=== PATIENT | male | born 1950 | race Hispanic/Latino ===

== ENCOUNTER 2025-01-09 18:40 | Emergency (ER) | payer MEDICARE ==
[~2025-01-09] VITALS: Ht 167.6 cm; Wt 78.0 kg
--- NOTE | 2025-01-09 19:17 | HMCIMG ---
CT HEAD WITHOUT CONTRAST INDICATION: Vision changes TECHNIQUE: Noncontrast axial helical CT images from the vertex through the skull base using 5 mm slice thickness without contrast material. Coronal and sagittal reconstructions were also included. Dose reduction techniques was used using integrated, automated and adaptive dose reduction exposure control. CT was performed with one or more of the following dose reduction techniques: Automated exposure control, adjustment of the mA and/or kV according to patient size, or use of iterative reconstruction technique. COMPARISON: None FINDINGS: Scattered and coalescent subcortical and periventricular white matter low attenuating areas likely represent residual of chronic small vessel arteriopathy and/or remote vascular insult. Generalized mild cerebral cortical atrophy is present.. No evidence for abnormal extra-axial fluid collections or masses. The ventricles and sulci are normal in size and configuration. 6.0 x 2.5 cm right occipital lobe parenchymal hematoma. No evidence for mass effect or midline shift. No evidence for epidural or subdural hemorrhage. The barrientos-white matter differentiation is well preserved. No secondary evidence to suggest acute ischemia. Mild calcific plaque is present along the yanez of the cavernous segments of both internal carotid arteries. The brainstem and cerebellum appear normal. The visualized orbits appear unremarkable. The visible paranasal sinuses and mastoid air cells are clear. The calvarium appears normal. IMPRESSION: Large right occipital lobe parenchymal hematoma. This examination was provided for interpretation at 7:14 PM. Above findings discussed with ER staff at 7:14 PM on 01/09/2025 via telephone prior to finalization of this report. Chronic white matter ischemic changes, mild brain atrophy, and arteriosclerotic disease as described, without acute component.
[2025-01-09 19:27] LABS: BASOPHILS # (AUTO) 0.03 K/uL (0.00-0.20); BASOPHILS % (AUTO) 0.4 % (0.0-5.0); EOSINOPHILS # (AUTO) 0.11 K/uL (0.00-0.70); EOSINOPHILS % (AUTO) 1.5 % (0.0-8.0); HEMATOCRIT 34.6 % (42-54); IMMATURE GRANULOCYTE ABSOLUTE 0.02 K/uL (0-1); LYMPHOCYTES # (AUTO) 2.1 K/uL (1.0-4.8); MEAN CORPUSCULAR HEMOGLOBIN 31.5 pg (27.0-33.0); MEAN CORPUSCULAR HGB CONC 34.7 g/dL (32.0-36.0); MEAN CORPUSCULAR VOLUME 90.8 fL (79-99); MONOCYTES # (AUTO) 0.6 K/uL (0.1-1.0); MONOCYTES % (AUTO) 8.4 % (3.0-13.0); NEUTROPHILS # (AUTO) 4.5 K/uL (1.8-7.7); NEUTROPHILS % (AUTO) 60.4 % (40.0-77.0); PLATELET COUNT (AUTO) 179 K/uL (130-400); RED BLOOD CELL COUNT(AUTO) 3.81 MIL/uL (4.50-6.20); RED CELL DISTRIBUTION WIDTH 12.3 % (11.0-15.5); WHITE BLOOD COUNT (AUTO) 7.4 K/uL (4.8-10.8)
--- NOTE | 2025-01-09 19:43 | ERN ---
ED Note History of Present Illness Stated Complaint: VISION AND BALANCE PROBLEM Chief Complaint: Vision Problem Time Seen by MD: 19:55 Dictation: This is a 74-year-old male who came into the emergency room complaining of vision issues and balance of today. He stated that he also had a headache right above the right eyebrow which he started experiencing around 5:00 p.m.. Apparently his daughter noticed that he was more tired than usual and felt somewhat unsteady and hence she called the son and [id number] who came by to check on him and convinced him to come to the emergency room. He denied any loss of consciousness. No seizure. The blurred vision mostly in the right eye. No history of any seizure activity. No history of taking any blood thinners. Stroke alert was called around 650 p.m. [id number] Miladis at bedside. Temperature 97.9� pulse 78 respirations 16 blood pressure 134/65 pulse oximetry 99% on room air His chronic medical problems include diabetes mellitus and hypertension NIH 3 Allergies: Coded Allergies: No Known Drug Allergies (Unverified Allergy, Unknown, 01/09/25) Past Medical History Past Medical History: Diabetes-Type II, High Cholesterol, Hypertension Surgical History: None Family History: Negative Social History: Negative RN Note Reviewed/Agreed w/PFSH: Yes Review of System Dictation Constitutional: Negative for fever,chills, and weight loss Eyes: Negative for injury, pain,redness, and discharge ENT: Negative for injury,pain or swelling Cardiovascular: Negative for chest pain, palpitations, and edema Respiratory: Negative for shortness of breath, cough, and wheezing, Abdomen/GI: Negative for abdominal pain, nausea, vomiting, diarrhea, and constipation Back: Negative for injury and pain : Negative for injury, bleeding and discharge MS/Extremity: Negative for injury and deformity Skin: Negative for rash, and discoloration Neuro: Positive for headache near right forehead area, denies weakness, numbness, tingling, and seizure Psych: Negative for suicide ideation, homicidal ideation, and hallucinations Initial Vital Sign VS Vital Signs Date Time Temp Pulse Resp B/P (MAP) Pulse Ox O2 Delivery O2 Flow Rate FiO2 01/09/25 18:42 97.9 78 16 134/65 99 Room Air 01/09/25 19:22 0 21 Physical Exam Dictation General: awake, alert, NAD Head/Face: Normocephalic, atraumatic Eyes: PERRL, EOMI, vision at baseline ENT: oral cavity clear, TMs clear, no signs of infection Neck: Trachea midline, supple, no nuchal rigidity Cardiovascular: RRR, normal S1/S2, No MRGs, no JVD Respiratory: CTAB, no respiratory distress, No rales or wheezes Abdomen: Soft, non-tender, non-distended, normal bowel sounds, no guarding or rebound. Skin: Warm, dry, normal turgor, no rash MS/Extremity: Pulses equal, no cyanosis, neurovascular intact, FROM Neuro: COAx4, GCS 15, strength 5/5, CN 2-12 intact, normal cerebellar exam, normal gait, Psych: Normal behavior, mood, and affect normal Extremities-trace edema without any palpable cords, Homans sign is negative Results (Laboratory/Radiology) Laboratory/Radiology Laboratory Tests Test 01/09/25 18:47 01/09/25 19:17 01/09/25 19:47 Whole Blood Glucose 220 MG/DL (70-110) H White Blood Count 7.4 K/uL (4.8-10.8) Red Blood Count 3.81 MIL/uL (4.50-6.20) L Hemoglobin 12.0 g/dL (14.0-18.0) L Hematocrit 34.6 % (42-54) L Mean Corpuscular Volume 90.8 fL (79-99) Mean Corpuscular Hemoglobin 31.5 pg (27.0-33.0) Mean Corpuscular Hemoglobin Concent 34.7 g/dL (32.0-36.0) Red Cell Distribution Width 12.3 % (11.0-15.5) Platelet Count 179 K/uL (130-400) Mean Platelet Volume 10.7 fL (7.5-10.5) H Immature Granulocyte % (Auto) 0.3 % (0-1) Neutrophils (%) (Auto) 60.4 % (40.0-77.0) Lymphocytes (%) (Auto) 29.0 % (21.0-51.0) Monocytes (%) (Auto) 8.4 % (3.0-13.0) Eosinophils (%) (Auto) 1.5 % (0.0-8.0) Basophils (%) (Auto) 0.4 % (0.0-5.0) Neutrophils # (Auto) 4.5 K/uL (1.8-7.7) Lymphocytes # (Auto) 2.1 K/uL (1.0-4.8) Monocytes # (Auto) 0.6 K/uL (0.1-1.0) Eosinophils # (Auto) 0.11 K/uL (0.00-0.70) Basophils # (Auto) 0.03 K/uL (0.00-0.20) Absolute Immature Granulocyte (auto 0.02 K/uL (0-1) Nucleated Red Blood Cells 0.0 % (0.0-0.19) Prothrombin Time 10.9 SEC (9.6-11.6) Prothromb Time International Ratio 1.03 (0.85-1.15) Activated Partial Thromboplast Time 27.7 SEC (26.3-35.5) Sodium Level 138 mmol/L (136-145) Potassium Level 4.5 mmol/L (3.5-5.1) Chloride Level 104 mmol/L (101-111) Carbon Dioxide Level 27 mmol/L (21-32) Blood Urea Nitrogen 27 mg/dL (7-18) H Creatinine 1.4 mg/dL (0.5-1.3) H Glomerular Filtration Rate Calc 52 mL/min (>90) Random Glucose 224 mg/dL (70-105) H Total Calcium 8.6 mg/dL (8.5-10.1) Total Creatine Kinase 50 U/L (21-232) Troponin I High Sensitivity < 4 ng/L (4-75) L B-Type Natriuretic Peptide 23 pg/mL (0-100) LDL Cholesterol 71 mg/dL (0-99) Urine Color LIGHT-YELLOW (YELLOW) Urine Appearance CLEAR (CLEAR) Urine pH 5.0 (5.0-8.0) Urine Specific [place] 1.030 (1.001-1.031) Urine Protein 10 mg/dL (NEGATIVE) H Urine Glucose (UA) 500 mg/dL (NEGATIVE) H Urine Ketones 5 mg/dL (NEGATIVE) H Urine Occult Blood NEGATIVE (NEGATIVE) Urine Nitrate NEGATIVE (NEGATIVE) Urine Bilirubin NEGATIVE mg/dL (NEGATIVE) Urine Urobilinogen 2.0 mg/dL (0.2-1.0) H Urine Leukocyte Esterase NEGATIVE Shira/uL Urine RBC 2-5 /HPF (0-1) H Urine WBC 0-1 /HPF (0-1) Urine Bacteria None /HPF (None Seen) Urine Hyaline Casts 6-10 /LPF (0-1 /LPF) H Labs Reviewed?: Yes EKG Comment: Twelve lead EKG done on 01/09/2025 at 6:52 p.m. showed a heart rate of 68, [place] interval 153, QRS 90, QT/QTC 387/412 Impression normal sinus rhythm presence of Q's in the septal leads likely from an old infarct no acute ST elevations noted. Overall somewhat low voltage secondary to likely body habitus Twelve lead EKG rhythm strip-normal sinus rhythm somewhat low voltage no acute STT wave changes noted. Interpreted by ER MD Dr. Alvarez X-RAY Comment: REASON: CP ORDERING PHYSICIAN: MATTHEW OLGUIN MD PROCEDURE: CXR1VW - CHEST 1VW PORTABLE CHEST RADIOGRAPH INDICATION: CP COMPARISON: None FINDINGS: monitor technician leads overlie the field of view. Heart size is normal. Mild calcific plaque is present along the aortic arch yanez. The pulmonary vascularity and joan appear normal. No abnormal pulmonary parenchymal opacity or consolidation identified. No significant pleural effusion noted. No pneumothorax detected. IMPRESSION: No radiographic evidence for any acute cardiopulmonary process. DICTATED BY: JILL HOLT MD DATE: 01/09/251958 ELECTRONICALLY SIGNED BY: JILL HOLT MD DATE: 01/09/252001 CT Scan Comment: REASON: VISION CHANGES ORDERING PHYSICIAN: MATTHEW OLGUIN MD PROCEDURE: HEAD WO - CT HEAD/BRAIN W/O CONTRAST CT HEAD WITHOUT CONTRAST INDICATION: Vision changes TECHNIQUE: Noncontrast axial helical CT images from the vertex through the skull base using 5 mm slice thickness without contrast material. Coronal and sagittal reconstructions were also included. Dose reduction techniques was used using integrated, automated and adaptive dose reduction exposure control. CT was performed with one or more of the following dose reduction techniques: Automated exposure control, adjustment of the mA and/or kV according to patient size, or use of iterative reconstruction technique. COMPARISON: None FINDINGS: Scattered and coalescent subcortical and periventricular white matter low attenuating areas likely represent residual of chronic small vessel arteriopathy and/or remote vascular insult. Generalized mild cerebral cortical atrophy is present.. No evidence for abnormal extra-axial fluid collections or masses. The ventricles and sulci are normal in size and configuration. 6.0 x 2.5 cm right occipital lobe parenchymal hematoma. No evidence for mass effect or midline shift. No evidence for epidural or subdural hemorrhage. The barrientos-white matter differentiation is well preserved. No secondary evidence to suggest acute ischemia. Mild calcific plaque is present along the yanez of the cavernous segments of both internal carotid arteries. The brainstem and cerebellum appear normal. The visualized orbits appear unremarkable. The visible paranasal sinuses and mastoid air cells are clear. The calvarium appears normal. IMPRESSION: Large right occipital lobe parenchymal hematoma. This examination was provided for interpretation at 7:14 PM. Above findings discussed with ER staff at 7:14 PM on 01/09/2025 via telephone prior to finalization of this report. Chronic white matter ischemic changes, mild brain atrophy, and arteriosclerotic disease as described, without acute component. DICTATED BY: JILL HOLT MD DATE: 01/09/251910 ELECTRONICALLY SIGNED BY: JILL HOLT MD DATE: 01/09/251916 ED Course ED Course Orders Procedure Category Date Status Time Vital Signs(Adult CPOE 01/09/25 Transmitted Hospitalist) 18:47 Cbc With Differential LAB 01/09/25 Complete 18:47 Prothrombin Time With LAB 01/09/25 Complete INR 18:47 Partial LAB 01/09/25 Complete Thromboplastin Time 18:47 Ct Head/Brain W/O CT 01/09/25 Resulted Contrast 18:47 Chest 1vw RAD 01/09/25 Resulted 18:47 12 Lead Ekg Tracing- EKG 01/09/25 Logged Technical 18:47 Creatine Kinase, Total LAB 01/09/25 Complete 18:47 Ldl Direct LAB 01/09/25 Complete 18:47 Troponin I High LAB 01/09/25 Complete Sensitivity 18:47 Urinalysis Profile LAB 01/09/25 Complete 18:47 B-Type Natriuretic LAB 01/09/25 Complete Peptide 18:47 Bedside Glucose CPOE 01/09/25 Transmitted Fingerstick 18:47 Basic Metabolic Panel LAB 01/09/25 Complete 18:47 Acetaminophen 500mg PHA 01/10/25 Complete Tab (Tylenol 500mg T 00:00 Acetaminophen 500mg PHA 01/10/25 Complete Tab (Tylenol 500mg T 00:02 Current Medications Medications (Trade) Dose Ordered Sig/Eliud Route PRN Reason Start Time Stop Time Status Last Admin Dose Admin Acetaminophen (TYLenol 500MG TAB) 500 mg ONCE ONCE PO 01/10/25 00:00 01/10/25 00:02 DC 01/10/25 00:03 Acetaminophen (TYLenol 500MG TAB) 500 mg STK-MED ONCE .ROUTE 01/10/25 00:02 01/10/25 00:11 DC Vital Signs Date Time Temp Pulse Resp B/P (MAP) Pulse Ox O2 Delivery O2 Flow Rate FiO2 01/10/25 01:32 98.2 68 18 135/60 99 Room Air* 0 21 01/10/25 00:08 98.2 67 18 142/62 99 Room Air* 0 21 01/09/25 22:55 98.2 69 18 127/59 98 Room Air* 0 21 01/09/25 21:44 66 18 149/80 98 Room Air* 0 21 01/09/25 20:58 69 18 128/57 98 Room Air* 0 21 01/09/25 20:25 64 18 144/70 99 Room Air* 0 21 01/09/25 19:22 69 18 147/62 97 Room Air* 0 21 01/09/25 18:42 97.9 78 16 134/65 99 Room Air We will perform diagnostic labs, advanced imaging and administer medications according to the patient's complaint. Once the results are available, will review and personally interpreted the labs to rule out any acute life- threatening emergency the trach require immediate intervention and treatment. I will then re-evaluate the patient after treatment and diagnostic exams have return to determine whether the patient requires any further testing, can safely be discharged home or need further admission to hospital for additional treatment and evaluation. 7:[address] scan of the head verbal report received from radiologist that patient has not occipital hematoma on the right. I reviewed the films myself there is a large right-sided occipital hematoma without any midline shift or mass effect that I could appreciate. 7:25 p.m. I updated the patient who is very hard of hearing and his [id number] about the CT scan findings and concern for intracranial hemorrhage and at this current time patient is doing fairly well with a decent blood pressure. I explained to her that most likely he will be transferred to another facility with the Neuro Intensive Care and neurosurgical services availability. 8:20 p.m. labs reviewed CBC showed a white count of 7.4 hemoglobin of 12. BNP 7 shows a BUN and creatinine of 27 and 1.4 with a glucose of 224. Brain n atriuretic peptide 23 LDL is 71 8:[address] Manriquez, neurosurgeon at [facility] and updated him on all the available labs and imaging studies and he recommended admission to intensive care unit services at [facility]. 10:32 p.m. also discussed with Gustavo, acute care nurse practitioner as the bush and vine farmer fruit crops was tied up with emergency. Patient was accepted for admission. 11:00 p.m. patient complained of the headache, Tylenol given. No change in the neuro status. NIH at 3 2:00 a.m. EMS here to transport the patient to [facility] for further management Medical Decision Making MDM Differential diagnosis: Ischemic stroke, hemorrhagic stroke, uncontrolled hypertension, vascular headache Rationale: Tests considered and ordered secondary to shared decision making include: labs, ECG and radiology Previous outside records reviewed: Old ER visits. Risk of complication and/or morbidity or mortality of patient management: None Medications-Per medication reconciliation Need for hospitalization: Patient does meet criteria for hospitalization. Need for emergency major/minor surgery: No There are no social concerns with this patient. Prescription drug management Prescriptions will include symptomatic care Patient's prior external medical records from other ER visits were reviewed by me as indicated. Prior testing and results from previous visits were reviewed. Prior tests were taken into account with medical decision making and resource utilization, independent historian/historians were used to obtain complete medical history. I independently interpreted the test that were performed, results were reviewed by me and considered findings on radiology if ordered. Medical management and examination interpretation discussions were had by me with other qualified healthcare professionals as indicated for the patient's care. PATIENT WILL BE TRANSFERRED TO ANOTHER FACILITY WITH THE NEURO INTENSIVE CARE AND NEUROSURGICAL SERVICES WHICH ARE NOT AVAILABLE AT THIS FACILITY Problem List Problem List: (1) Acute kidney injury (2) Hemorrhagic cerebrovascular accident (CVA) (3) Hypertension (4) Diabetes mellitus Critical Care Note Comment(s) Life-threatening illness; occipital hemorrhage, hypertension Risk of morbidity mortality-high Complexity of medical decision making-high (X) high probability of sudden clinically significant deterioration in the patient's condition required the highest level of my preparedness to intervene urgently. I provided critical care services requiring my direct and personal management as noted below; (x) chart data review (x) reviewing nurse's notes and/charts (x) documentation time (x) consultation collaboration on findings and therapy options (x) medication orders and management (x) re-evaluations (x) care, transfer of care, and discharge plans (x) ordering and interpreting studies (x) ordering and reviewing labs (x) obtaining necessary history from family, EMS, penitentiary, private MD, surrogate decision makers because patient was unable to give history due to limitations in the mental status (x) aggregate critical care time was ( 45 ) minutes. This includes only time during which I was engaged in work directly related to the patient's care as described above whether at the bedside or elsewhere in the ER while the patient was critical. My time did not include minutes spent treating any other patients simultaneously or on activities that did not directly contribute to the patient's treatment. It did not include time spent performing other reported procedures or services of residents if any. Yin MAGANACP Stroke Patient?: Hemorrhagic Is Patient Candidate for t-PA?: No Did the Patient Receive t-PA?: No Contraindication for t-PA?: Medical Contraindication NIH STROKE SCALE: NIH STROKE SCALE Response (Comments) Value Level of Consciousness Alert 0 Ask patient month and their age Answers both correct 0 Command to open eyes, make fist and let go Obeys both correct 0 Best gaze (horizontal eye movement) Normal 0 Visual Field Testing Partial Hemianopia 1 Facial Paresis Minor Paralysis 1 Motor Function - Left Arm Normal 0 Motor Function - Right Arm Normal 0 Motor Function - Left Leg Normal 0 Motor Function - Right Leg Normal 0 Limb Ataxia Present in 1 limb 1 Sensory-pin prick to arms, legs, trunk and face Normal 0 Best Language (describe picture, name items and read) No Aphasia 0 Dysarthria (read several words) Normal Articulation 0 Extinction and Inattention Normal 0 Total 3 DX & DISP Disposition: Transfer Departure Impression: Primary Impression: Hemorrhagic cerebrovascular accident (CVA) Additional Impressions: Hypertension, Diabetes mellitus, Acute kidney injury Condition: Stable Additional Instructions: The patient has been informed about all the diagnostic tests and procedures carried out in the emergency room today and has confirmed understanding of the results. Patient will be transferred to a facility that provides a higher level of care since such services are not accessible locally or within our immediate community. The patient is alert oriented and not experiencing any acute distress. There are no signs of sepsis and patient's hemodynamic status is stable at the moment. Medically, the patient is considered stable for transfer Patient will be transferred to [facility] Neuro Intensive Care-and neurosurgeon YIN Sprague MD January 09, 2025 19:43
[2025-01-09 19:54] LABS: CREATININE 1.4 mg/dL (0.5-1.3); POTASSIUM 4.5 mmol/L (3.5-5.1)
[2025-01-09 19:55] LABS: ADD UA MICROSCOPIC YES; APPEARANCE,URINE CLEAR (CLEAR); BILIRUBIN,URINE NEGATIVE (NEGATIVE); COLOR,URINE LIGHT-YELLOW (YELLOW); GLUCOSE, URINE (UA) 500 mg/dL (NEGATIVE); KETONES,URINE 5 mg/dL (NEGATIVE); LEUKOCYTE ESTERASE ,URINE NEGATIVE Leu/uL (NEGATIVE); NITRATE,URINE NEGATIVE (NEGATIVE); OCCULT BLOOD,URINE NEGATIVE (NEGATIVE); PROTEIN,URINE 10 mg/dL (NEGATIVE)
[2025-01-09 19:55] LABS: INR 1.03 (0.85-1.15); PROTHROMBIN TIME 10.9 SEC (9.6-11.6)
--- NOTE | 2025-01-09 19:55 | NUR ---
SPOKE WITH ANNALEE AT [facility], TRANSFER REQUEST INITIATED.
[2025-01-09 19:56] LABS: PARTIAL THROMBOPLASTIN TIME 27.7 SEC (26.3-35.5)
[2025-01-09 19:58] LABS: MUCUS,URINE RARE LPF (None Seen); WBC,URINE 0-1 /HPF (0-1)
[2025-01-09 20:00] LABS: B-TYPE NATRIURETIC PEPTIDE 23 pg/mL (0-100)
--- NOTE | 2025-01-09 20:02 | HMCIMG ---
PORTABLE CHEST RADIOGRAPH INDICATION: CP COMPARISON: None FINDINGS: interventional sale consultant leads overlie the field of view. Heart size is normal. Mild calcific plaque is present along the aortic arch yanez. The pulmonary vascularity and joan appear normal. No abnormal pulmonary parenchymal opacity or consolidation identified. No significant pleural effusion noted. No pneumothorax detected. IMPRESSION: No radiographic evidence for any acute cardiopulmonary process.
--- NOTE | 2025-01-09 20:14 | NUR ---
As per Dr Manriquez, attempt to admit patient at [facility] with intensivists. If unable to admit here then will accept the transfer.
--- NOTE | 2025-01-09 21:15 | NUR ---
CALLED [facility] TO INQUIRE ABOUT TRANSFER, WAS TOLD DR. NIÑO ACCEPTED THE PATIENT BUT STILL WAITING FOR BLASTING ENTRYMAN.
--- NOTE | 2025-01-09 23:20 | NUR ---
SPOKE WITH ANNALEE AT [facility], SHE STATES THE REAL ESTATE SPECIALIST HAS ACFCEPTED THE PATIENT AND JUST WAITING FOR ICU BED ASSIGNMENT AT THIS TIME.
[2025-01-10] MEDS: acetaMINOPHEN 500 MG TABLET PO ONE (00:03)
[2025-01-10] MEDS: acetaMINOPHEN 500 MG TABLET ONE (00:14)
--- NOTE | 2025-01-10 00:38 | NUR ---
MOT INFORMATION AND BED ASSIGNMENT OBTAINED AT THIS TIME.
--- NOTE | 2025-01-10 01:21 | NUR ---
REPORT GIVEN TO KEYBOARD INSTRUMENT TUNER, RAPHAEL REAL -[facility] FOR TRANSPORT
[2025-01-10 01:32] VITALS: BP 135/60; PULSE 68; RESP 18; TEMP 98.2; O2SAT 99
--- NOTE | 2025-01-10 07:47 | EKG ---
[facility] Test Date: 2025-01-09 Test Time: 18:52:44 Pat Name: JOSE CRUZ HARRIS Department: [facility] Room: Gender: M Residential Concierge: 08 : 1950 Requested By: MATTHEW OLGUIN Order Number: [id number] Reading MD: Douglas Couch Measurements Intervals Gordon Rate: 68 P: 52 RI: 153 QRS: 19 QRSD: 90 T: 53 QT: 387 QTc: 412 Interpretive Statements Sinus rhythm Probable anteroseptal infarct, old No previous ECG available for comparison Electronically Signed On 01-11-2025 12:31:47 CDT by Douglas Couch Please click the below link to view image of tracing.
== END 2025-01-10 01:45 | disposition short-term general hospital (02) ==
LOC: EDH 18:40
DX: I62.9 Nontraumatic intracranial hemorrhage, unspecified (principal); N17.9 Acute kidney failure, unspecified; I10 Essential (primary) hypertension; E11.9 Type 2 diabetes mellitus without complications; E78.00 Pure hypercholesterolemia, unspecified; Z86.73 Personal history of transient ischemic attack (TIA), and cerebral infarction without residual deficits
CPT/HCPCS: 36415; 70450; 71045; 80048; 81001; 82550; 82948; 83721; 83880; 84484; 85025; 85610; 85730; 93005; 99291